=== PATIENT | male | born 1955 | race Caucasian/White ===

== ENCOUNTER 2019-08-14 07:30 | Day surgery (SDC) | payer MEDICARE, OTHER ==
[~2019-08-14] VITALS: Ht 175.3 cm; Wt 126.8 kg
[~2019-08-14 07:30] MED LIST: ASPIRIN 81M81 MG/TA2 PO; BYSTOLIC10 MG PO; CIALIS2.5 MG PO; DEPAKOTE ER 25250 MG PO; FLEXERIL 1010 MG/TAB PO; HYZAAR 25 MG-101 TAB PO; LEXAPRO 10MG10 MG PO; MULTIPLE VITAMI1 CAP PO; OMEGA-3 FISH1200 MG PO; TESTOSTERONE INJECTI; VITAMINC1000TA; XYAL5 MG PO
[2019-08-14 08:15] VITALS: BP 139/91; PULSE 100; TEMP 98.1
[2019-08-14] MEDS ORDERED: ZYRTEC 10MG10 MG PO (08:28)
[2019-08-14] MEDS ORDERED: CINNAMON500 MG PO (08:32)
[2019-08-14] MEDS ORDERED: ELIQUIS 5MG PO (08:32)
[2019-08-14] MEDS ORDERED: GLUCOPHAGE500 MG/TAB PO (08:33)
[2019-08-14] MEDS ORDERED: LUTEIN20 M1 PO (08:34)
[2019-08-14 08:48] LABS: HEMATOCRIT 43.5 % (42.0-52.0); HEMOGLOBIN 14.6 g/dl (13.5-18.0); MEAN CELL VOLUME 92 fl (80.0-100.0); MEAN CORPUSCULAR HEMOGLOBIN 31 pg (27.0-31.0); MEAN CORPUSCULAR HGB CONC 34 g/dl (33.0-37.0); MEAN PLATELET VOLUME 9.7 fl (7.4-10.4); PLATELET COUNT 178 K/mm3 (130-400); RED BLOOD COUNT 4.75 M/mm3 (4.20-5.60); REDCELL DISTRIBUTION WIDTH-CV 13.8 % (11.5-14.5)
[2019-08-14 08:56] LABS: INR 1.1 (0.8-3.0); PROTHROMBIN TIME 13.1 SECONDS (9.7-12.8)
[2019-08-14 08:58] LABS: CALCIUM 8.9 mg/dL (8.4-10.2); CREATININE, serum 0.77 (0.66-1.25); MAGNESIUM 1.9 mg/dL (1.6-2.3); PARTIAL THROMBOPLASTIN TIME 33.8 SECONDS (26.0-37.0); POTASSIUM 4.1 mmol/L (3.4-5.0)
[2019-08-14 09:15] VITALS: BP 118/78; PULSE 76; TEMP 97.6
[2019-08-14] MEDS ORDERED: MULTAQ400 MG PO (09:20)
[2019-08-14 09:29] LABS: THYROID STIMULATING HORMONE 1.31 uIU/mL (0.465-4.680)
[2019-08-14 09:30] VITALS: BP 104/66; PULSE 77
--- NOTE | 2019-08-14 10:00 | NUR ---
PT TAKING SIPS OF WATER WITHOUT DIFFICULTY. SITTING UP ON SIDE OF BED. DENIES FEELING LIGHTHEADED OR DIZZY. SPOUSE AT BEDSIDE. EXPLAINED DISCHARGE F/U APPOINTMENT, NEW MEDICATION MULTAQ STARTED, EDUCATION AND MEDS WITH PT AND PT'S SPOUSE. PT VERBALIZED UNDERSTANDING. PT SIGNED DISCHARGE PAPERWORK. PT DISCHARGED FROM . LEFT UNIT VIA WHEELCHAIR TO PRIVATE VEHICLE DRIVEN BY SPOUSE.
== END 2019-08-14 10:04 | disposition home or self-care (01) ==
LOC: COL.CAR 07:30
PROVIDERS: Internal Medicine Cardiovascular Disease
DX: I48.0 Paroxysmal atrial fibrillation (principal); I08.0 Rheumatic disorders of both mitral and aortic valves; I10 Essential (primary) hypertension; E78.5 Hyperlipidemia, unspecified; G47.33 Obstructive sleep apnea (adult) (pediatric); K21.9 Gastro-esophageal reflux disease without esophagitis; F41.9 Anxiety disorder, unspecified; E11.9 Type 2 diabetes mellitus without complications; F32.9 Major depressive disorder, single episode, unspecified; N52.9 Male erectile dysfunction, unspecified; M19.90 Unspecified osteoarthritis, unspecified site; Z96.652 Presence of left artificial knee joint; Z79.84 Long term (current) use of oral hypoglycemic drugs; Z79.01 Long term (current) use of anticoagulants; Z79.52 Long term (current) use of systemic steroids
CPT/HCPCS: J2704